=== PATIENT | female | born 1970 | race Caucasian/White ===

== ENCOUNTER → 2017-02-27 | Outpatient (CLI) | payer BC ==
--- NOTE | 2017-02-27 15:38 | RAD ---
Indication injury 5 weeks ago. Persistent pain along the fifth metatarsal. AP oblique and lateral views of the right foot were obtained. No bony abnormality is seen
== END | disposition home or self-care (01) ==
LOC: DXRAD 14:10
PROVIDERS: ATTEND Nurse Practitioner Family
DX: S99.921A Unspecified injury of right foot, initial encounter (principal); W19.XXXA Unspecified fall, initial encounter; Y93.89 Activity, other specified; Y92.89 Other specified places as the place of occurrence of the external cause; Y99.8 Other external cause status
CPT/HCPCS: 73630